=== PATIENT | female | born 1990 | race Caucasian/White ===

== ENCOUNTER 2016-12-01 16:05 | Emergency (ER) | payer OTHER ==
[2016-12-01] MEDS ORDERED: OXYCODONE/APAP 5/325 TAB PO ONE (17:13)
--- NOTE | 2016-12-01 17:16 | EDPHY ---
H & P Time Seen by Provider: 12/01/16 16:57 HPI/ROS: CHIEF COMPLAINT: Right ankle swelling HISTORY OF PRESENT ILLNESS: This is a 26-year-old female presenting to the emergency department complaining of right ankle pain and swelling after tripping over exercise machine at the gym several hours ago. Patient states she twisted her ankle and has not been able to bear weight since then, increased swelling and pain. Denies any other injury REVIEW OF SYSTEMS: Constitutional: No fever, no chills. Eyes: No blurred vision ENT: No sore throat. Cardiovascular: No chest pain, no palpitations. Respiratory: no shortness of breath. Gastrointestinal: No abdominal pain, no vomiting. Musculoskeletal: No back pain. Right ankle pain with swelling Skin: No rashes. Neurological: No headache. Smoking Status: Never smoked Physical Exam: General Appearance: Alert, no distress. Eyes: no pallor or injection. Respiratory: There are no retractions, nonlabored respiratory effort Cardiovascular: Regular rate and rhythm. Gastrointestinal: Abdomen is soft and nontender, no masses, no obvious injuries Neurological: No focal deficits Skin: Warm and dry, no rashes. Musculoskeletal: Vertebral cervical spine is nontender on palpation full range of motion Extremities: Right ankle swelling, decreased range of motion lateral malleolus tender on palpation no obvious deformity positive CMS intact no obvious bruising noted Psychiatric: Patient is oriented X 3, there is no agitation. Constitutional: Initial Vital Signs Temperature (C) 36.8 C 12/01/16 16:20 Heart Rate 97 12/01/16 16:20 Respiratory Rate 16 12/01/16 16:20 Blood Pressure 133/90 H 12/01/16 16:20 O2 Sat (%) 95 12/01/16 16:20 O2 Delivery Mode Room Air Allergies/Adverse Reactions: No Known Allergies Allergy (Verified 12/01/16 16:20) Home Medications: Medication Instructions Recorded MIRENA 12/01/16 oxyCODONE/APAP 5/325 [Percocet 1 - 2 tab PO Q4H PRN #10 tab 12/01/16 5/325 (*)] Medical Decision Making - Diagnostics Imaging Results: Imaging Impressions Ankle X-Ray 12/01/16 16:25 Impression: No fracture or dislocation. ED Course/Re-evaluation: Discussed ED plan of care: X-ray of right ankle negative for any acute fractures. Stirrup splint placed to right lower extremity patient given crutches with instructions weight-bearing as tolerated. Discharge home---> stable, discussed discharge instructions with patient Differential Diagnosis: Other differential diagnosis considered but not limited to malleolar fracture, ankle dislocation and distal tib-fib fracture - Data Points Medications Given: Discontinued Medications Oxycodone/Acetaminophen (Percocet 5/325) 2 tab PO EDNOW ONE Stop: 12/01/16 17:14 Last Admin: 12/01/16 17:25 Dose: 2 tab Departure - Departure Disposition: Home, Routine, Self-Care Clinical Impression: Ankle sprain Qualifiers: Encounter type: initial encounter Involved ligament of ankle: unspecified ligament Laterality: right Qualified Code(s): S93.401A - Sprain of unspecified ligament of right ankle, initial encounter Condition: Good Instructions: Ankle Sprain (ED), Ankle Stirrup Splint (ED) Additional Instructions: Discussed discharge instructions 1. Elevate foot, ice 15 minutes as needed several times daily 2. Where splint on ankle for the next 7-10 days, if at any point times pain is persistent still unable to weightbear and repeat x-ray will may be recommended 3. Ibuprofen 600-800 mg every 6-8 hours as needed Referrals: Nancy Méndez MD [Primary Care Provider] - As per Instructions Prescriptions: oxyCODONE/APAP 5/325 [Percocet 5/325 (*)] 1 - 2 tab PO Q4H PRN #10 tab PRN Reason: Pain, Severe
[2016-12-01 17:37] VITALS: BP 125/87; PULSE 95; RESP 15; TEMP 98.8; O2SAT 97
== END 2016-12-01 17:37 | disposition home or self-care (01) ==
DX: S93.401A Sprain of unspecified ligament of right ankle, initial encounter (principal); W18.41XA Slipping, tripping and stumbling without falling due to stepping on object, initial encounter; Y92.89 Other specified places as the place of occurrence of the external cause
CPT/HCPCS: L4350